=== PATIENT | male | born 1975 | race Caucasian/White ===

== ENCOUNTER 2022-09-11 06:06 | Day surgery (SDC) | payer BC ==
[2022-09-10 09:16] VITALS: BMI 31.6
[2022-09-11 06:49] LABS: #Eosinphils 0.1 thou/uL (0.0-0.7); #Lymphocytes 2.3 thou/uL (1.20-3.40); #Monocytes 0.6 thou/uL (0.11-0.59); %Basophils 0.4 % (0.0-1.0); %Eosinophils 1.1 % (0.0-10.0); %Lymphocytes 38.9 % (21.0-51.0); %Monocytes 9.7 % (0.0-10.0); %Neutrophils 49.9 % (42.0-75.0); Hemoglobin 15.5 g/dL (14.0-18.0); Mean Corpuscular HGB CONC 34.9 g/dL (32.0-36.0); Mean Corpuscular Hemoglobin 31.7 pg (27.0-31.0); Mean Corpuscular Volume 90.8 fl (78.0-98.0); Mean Platelet Volume 7.7 fL (7.4-10.4); Platelet Count 205 10x3/uL (130-400); RBC Distribution Width 11.6 % (11.5-14.5); Red Blood Cell (RBC) Count 4.89 mill/uL (4.70-6.10)
[2022-09-11 06:59] LABS: Prothrombin Time 13.5 sec (12.0-14.7)
[2022-09-11 07:00] LABS: PTT 33.6 sec (22.9-36.1)
[2022-09-11 07:02] LABS: Anion Gap 13 mmol/L (10-20); BUN (Urea Nitrogen) 17 mg/dL (8.9-20.6); Calc. Creatinine Clearance 145 mL/min (70-130); Calcium 9.1 mg/dL (7.8-10.44); Carbon Dioxide 22 mmol/L (22-29); Chloride 106 mmol/L (98-107); Estimated GFR 89; Glucose 154 mg/dL (70-105); Potassium 4.4 mmol/L (3.5-5.1); Sodium 137 mmol/L (136-145)
[2022-09-11 07:03] LABS: ALT (SGPT) 34 U/L (8-55); AST (SGOT) 31 U/L (5-34); Albumin 4.4 g/dL (3.5-5.0); Alkaline Phosphatase 63 U/L (40-110); Bilirubin, Direct 0.3 mg/dL (0.1-0.3); Protein, Total 7.1 g/dL (6.0-8.3)
[2022-09-11] MEDS ORDERED: Protamine Sulfate 50 MG/5 ML VIAL ONE ×2 (07:04→10:47)
[2022-09-11] MEDS ORDERED: Heparin 10,000 UNITS/ 10 ML VIAL ONE (07:04)
[2022-09-11] MEDS ORDERED: Heparin 25,000 units/D5W 500 ML ONE (07:04)
[2022-09-11] MEDS ORDERED: Isoproterenol 0.2 MG/1 ML AMP ONE (07:04)
[2022-09-11] MEDS ORDERED: FENTANYL 50 MCG/ML 1 ML VIAL ONE ×3 (07:55→09:29)
[2022-09-11] MEDS ORDERED: Midazolam HCl 2 mg/2 ml Vial ONE (07:55)
[2022-09-11] MEDS ORDERED: Phenylephrine 10 MG/ML VIAL ONE (07:57)
[2022-09-11] MEDS ORDERED: Rocuronium Bromide 10 MG/ML (10ML VIAL) ONE (07:57)
[2022-09-11] MEDS ORDERED: PROPOFOL 200 MG/20 ML VIAL ONE (07:57)
[2022-09-11] MEDS ORDERED: NEOSTIGMINE 3 MG/3 ML SYR 3 MG/3 ML SYRINGE ONE (07:57)
[2022-09-11] MEDS ORDERED: Glycopyrrolate 0.2 MG/ML 5 ML SYRINGE ONE (07:57)
[2022-09-11] MEDS ORDERED: Ondansetron PF 4 MG/2 ML Vial ONE ×2 (07:57→13:37)
[2022-09-11] MEDS ORDERED: Morphine 4 MG/ML VIAL ONE ×2 (10:13→10:35)
[2022-09-11] MEDS ORDERED: PHENYLEPHRINE-NS 100 MCG/ML 10 ML SYRINGE ONE (10:22)
[2022-09-11] MEDS ORDERED: Ondansetron ODT 4 MG TAB ONE (16:03)
== END 2022-09-11 16:05 | disposition home or self-care (01) ==
LOC: SDC 06:06
PROVIDERS: ATTEND Internal Medicine Cardiovascular Disease
PROC: 4A023FZ Measurement of Cardiac Rhythm, Percutaneous Approach (ICD-10-PCS; principal; 2022-09-11)
PROC: 02K83ZZ Map Conduction Mechanism, Percutaneous Approach (ICD-10-PCS; principal; 2022-09-11)
PROC: B244ZZ3 Ultrasonography of Right Heart, Intravascular (ICD-10-PCS; principal; 2022-09-11)
PROC: 4A0234Z Measurement of Cardiac Electrical Activity, Percutaneous Approach (ICD-10-PCS; principal; 2022-09-11)
PROC: 02583ZZ Destruction of Conduction Mechanism, Percutaneous Approach (ICD-10-PCS; principal; 2022-09-11)
DX: I48.0 Paroxysmal atrial fibrillation (principal); E10.9 Type 1 diabetes mellitus without complications; I11.9 Hypertensive heart disease without heart failure; I08.1 Rheumatic disorders of both mitral and tricuspid valves; Q60.0 Renal agenesis, unilateral; Z86.16 Personal history of COVID-19; Z87.891 Personal history of nicotine dependence; Z79.01 Long term (current) use of anticoagulants; Z79.899 Other long term (current) drug therapy
CPT/HCPCS: 36416; 80048; 80076; 85025; 85347; 85610; 85730; 93005; 93010; 93622; 93623; 93656; C1732; C1759; C1760; C1769; C1894; J1644; J2250; J2270; J2370; J2405; J2704; J2720; J3010; Q0162